=== PATIENT | female | born 1995 | race Caucasian/White ===

== ENCOUNTER → 2019-04-19 | Outpatient (CLI) | payer OTHER ==
[~2019-04-19] MED LIST: EPIN0.3P15 IM
[2019-04-19 17:22] LABS: PLATELET COUNT, AUTOMATED 250 K/uL (150-450)
== END ==
LOC: LAB 16:46
PROVIDERS: ATTEND Emergency Medicine
DX: N91.2 Amenorrhea, unspecified (principal); T78.2XXA Anaphylactic shock, unspecified, initial encounter
CPT/HCPCS: 82040; 82247; 82310; 82374; 82435; 82565; 82670; 82947; 83001; 83520; 84075; 84132; 84146; 84155; 84295; 84443; 84450; 84460; 84520; 85025; 86140

== ENCOUNTER → 2019-07-04 | Outpatient (CLI) | payer OTHER ==
[~2019-07-04] MED LIST changes: +GADOBENATE 529MG/1ML 15ML VIAL IVP ONE
--- NOTE | 2019-07-04 12:59 | RADIOLOGY IMAGING REPORT ---
FACILITY: [facility] - [place] PATIENT NAME: Dominique Mcgregor : 1995 MR: [id number] V: [id number] EXAM DATE: ORDERING PHYSICIAN: DAVID FARRIS TECHNOLOGIST: Location: [facility] Patient: Dominique Mcgregor : 1995 Visit/Account:[id number] Date of Sevice: 07/04/2019 MR BRAIN/BRAIN STEM W/ & W/O CON Comparisons: None. Additional pertinent history: Amenorrhea TECHNIQUE: Multiplanar, multisequence brain MRI was performed with and without gadolinium contrast. CONTRAST: 9 ml of MultiHance. FINDINGS: Sagittal midline structures and craniocervical junction: Negative. Midline shift: None. Ventricles: Negative. Brain parenchyma: Diffusion weighted imaging: Negative. Gradient sequence: Negative. T2 weighted FLAIR images: Negative. Extra-axial spaces: Negative. Dural venous sinuses and major arterial flow voids: Negative. Intracranial enhancement: Negative.. Mastoid air cells and paranasal sinuses: Negative. Surrounding soft tissues and orbits: Negative. Impression: 1. Normal brain MRI with and without contrast. 2. No obvious abnormality involving the pituitary gland. No evidence of underlying macroadenoma. G iven the imaging a subtle microadenoma would be difficult to exclude. Report Dictated By: Emanuel Barnes MD at 07/04/2019 12:46 PM Report E-Signed By: Emanuel Barnes MD at 07/04/2019 12:51 PM WSN:[id number]
== END ==
LOC: MRI 01:58
PROVIDERS: ATTEND Emergency Medicine
DX: N91.1 Secondary amenorrhea (principal)
CPT/HCPCS: 70553; A9577